=== PATIENT | female | born 1950 | race Caucasian/White ===

== ENCOUNTER 2017-04-17 16:16 | Inpatient (IN) ==
[2017-04-17] MEDS ORDERED: Vancomycin 1,750 MG in D5% in Water 250 ML IVPB ONE (16:45)
--- NOTE | 2017-04-17 16:54 | Emergency Department Note ---
Disposition Clinical Impression: CHF (congestive heart failure) Qualifiers: Congestive heart failure type: unspecified congestive heart failure type Congestive heart failure chronicity: unspecified congestive heart failure chronicity Qualified Code(s): I50.9 - Heart failure, unspecified Cellulitis Qualifiers: Site of cellulitis: extremity Site of cellulitis of extremity: lower extremity Laterality: left Qualified Code(s): L03.116 - Cellulitis of left lower limb Chest pain Qualifiers: Chest pain type: unspecified Qualified Code(s): R07.9 - Chest pain, unspecified Abdominal pain Qualifiers: Abdominal location: generalized Qualified Code(s): R10.84 - Generalized abdominal pain Disposition: Admitted As Inpatient Condition: Good Time of Disposition: 19:32 General Adult HPI - General Chief complaint: ED Abdominal Pain Stated complaint: abd pain, leg swelling Time Seen by Provider: 04/17/17 16:27 Source: patient, family Limitations: no limitations Nursing Notes Reviewed: Yes Vital Signs Reviewed: Yes - History of Present Illness HPI Narrative: 66-year-old female presenting to the emergency department with multiple chief complaints. Her first chief complaint is left lower extremity cellulitis. Approximately 4 weeks ago she fell causing an abrasion to her leg. She states since then she has had increased swelling and pain to that area. She is also had redness to the area. Now there is an open check discharging puslike fluid. She also has the beginnings of an ulcer located on the posterior tibial portion of the leg. She was placed on antibiotics outpatient which did not resolve the issues. Her symptoms have progressively been getting worse. She is extremely tender to the touch on the anterior and posterior portion of the tibia. She has a chief complaint of abdominal pain. She states after her fall 4 weeks ago she has had progressive right sided flank and rib pain. She states after she fell she went to urgent care and they x-rayed her right ribs which are within normal limits. She states since then she has been having increased pain on her right side. She denies any rash or abrasion. She states she has the pain mostly when she takes deep breaths. She also complains of increased oxygen requirement. She normally is on 2 L oxygen at night at home but now she is needing oxygen throughout the day. This is happened progressively in the past 4 weeks since she had her fall. She denies being on any hormonal therapy or having any previous DVTs or PEs in the past. She is on clopidogrel this time. She does live a sedentary lifestyle. Denies any recent long trips. In the room the patient is resting comfortably in the bed with increased respirations. Otherwise is within normal limits and stable. Patient denies urinary symptoms. Pain Scale: 4 - Related Data Home Medications Medication Instructions Recorded Confirmed Allopurinol [Zyloprim] 200 mg PO DAILY 08/06/15 03/07/17 Aspirin [Adult Low Dose Aspirin EC] 81 mg PO DAILY 08/06/15 03/07/17 Atorvastatin [Lipitor] 40 mg PO HS 08/06/15 03/07/17 Carvedilol 12.5 mg PO BID 08/06/15 03/07/17 Clopidogrel [Plavix] 75 mg PO DAILY 08/06/15 03/07/17 Cyanocobalamin (Vitamin B-12) 1,000 mcg PO SOLORIO 08/06/15 03/07/17 [Vitamin B12] Furosemide [Lasix] 40 mg PO DAILY 08/06/15 03/07/17 Insulin Glargine [Lantus] 5 unit SQ QAM 08/06/15 03/07/17 Isosorbide MONOnitrate (24 HR) 120 mg PO DAILY 08/06/15 03/07/17 [Imdur] Losartan [Cozaar] 25 mg PO DAILY 08/06/15 03/07/17 Multivitamin [Multi-Day Vitamins] 1 each PO DAILY 08/06/15 03/07/17 Ranolazine [Ranexa] 500 mg PO BID 08/06/15 03/07/17 Acetaminophen [Tylenol] 1,000 mg PO Q6HR PRN 02/25/16 03/07/17 Albuterol Sulfate [Proair Hfa] 2 puff IH Q4H PRN 02/25/16 03/07/17 Cholecalciferol (D-3) [Vitamin D] 1,000 unit PO DAILY 02/25/16 03/07/17 Dextrin [Easy Fiber] 155 gm PO BID 02/25/16 03/07/17 Ipratropium/Albuterol Neb [Duoneb] 3 ml IH Q6HR 02/25/16 03/07/17 Cranberry Fruit Concentrate 450 mg PO BID 03/07/17 03/07/17 [Cranberry] Fluticasone/Salmeterol [Advair 1 each IH BID 03/07/17 03/07/17 250-50 Diskus] Insulin Glargine [Lantus] 70 unit SQ QPM 03/07/17 03/07/17 Insulin Regular, Human [Novolin R] 2 - 12 unit SQ TIDWM PRN 03/07/17 03/07/17 Lactobacillus Acidophilus 1 cap PO BID 03/07/17 03/07/17 [Acidophilus] Previous Rx's Medication Instructions Recorded Sulfamethoxazole/Trimeth SS 1 each PO BID #14 tablet 03/31/17 [Bactrim SS] HYDROcodone/Acet 5/325 mg [[place] 1 tab PO Q6H PRN #10 tab 04/11/17 5-325 mg] Allergies Allergy/AdvReac Type Severity Reaction Status Date / Time ramipril [From Altace] Allergy Intermediate Hives Verified 04/17/17 16:22 tetanus immune globulin Allergy Intermediate See Verified 04/17/17 16:22 Comments adhesive Allergy Mild See Verified 04/17/17 16:22 Comments All systems ED: reviewed and negative except as stated. Cardiovascular: Reports: chest pain (pleuritic), dyspnea on exertion Respiratory: Reports: dyspnea Gastrointestinal: Reports: abdominal pain Past Medical History - Past Medical History Attestation: Yes The following information was validated with the patient. Source: patient Medical history: Reports: CHF, COPD, diabetes, hypertension, peripheral artery disease, renal disease Surgical history: Reports: appendectomy, breast surgery, cholecystectomy, coronary bypass (CABG), pacemaker/AICD, thyroidectomy Psychiatric history: Reports: anxiety [employer] history: Reports: bilateral tubal ligation - Social History Smoking Status: Former smoker Smokeless Tobacco Status: No Alcohol use: Reports: none Drug use: Reports: none Physical Exam - General Limitations: no limitations General appearance: alert, in no apparent distress - Head Head exam: atraumatic, normocephalic, normal inspection - Eye Eye exam: Present: normal appearance - Neck Neck exam: Present: normal inspection, full ROM - Chest Chest inspection: Present: normal inspection, symmetric chest wall rise. Absent : tenderness, rash - Cardiovascular Cardiovascular exam: Present: regular rate, normal rhythm, normal heart sounds - Abdominal Exam Abdominal exam: Present: soft, tenderness (over the right flank), normal bowel sounds. Absent: distention, guarding, rebound, rigidity - Extremities Exam Extremities exam: Present: full ROM - Expanded Lower Extremity Exam Knee exam: Present: normal inspection, full ROM Lower leg exam: Present: other (non healing ulcer on the posterior portion of the tibia, redness and warmth with purulent drainage on the anterior tibia, tenderness to palpation, increased swelling) Neurovascular/Tendon exam: Present: normal capillary refill. Absent: pulse deficit, motor deficit, sensory deficit - Neurological Exam Neurological exam: Present: alert, oriented X3 - Psychiatric Psychiatric exam: Present: normal affect - Skin Skin exam: Present: warm Course Course Narrative: 66-year-old female presenting to the emergency department with multiple chief complaints. The first chief complaint is left lower extremity cellulitis. Due to failed outpatient therapy we will obtain basic lab work and start her on IV vancomycin. Second chief complaint is right-sided abdominal pain. This pain along with the increased demand oxygen leads us to get a d-dimer. If this is elevated we will need to perform a V/Q scan on her due to her creatinine levels. We will also obtain a CMP, lipase, CT of the abdomen and pelvis without contrast to rule out any trauma from the fall or other intra-abdominal pathologies. Patient is currently stable in the room and stable vital signs. - Reevaluation(s) Reevaluation #1: Patient was brought down to the V/Q scanner but was unable to lie flat. Due to her creatinine levels cannot perform a CTA. We will wait for d-dimer result reassess as needed. Time: 17:45 Reevaluation #2: Chest x-ray read as chronic congestive heart failure. Although the patient cannot obtain the VQ scan we provided with her with Lasix. We believe the increase fluid due to congestive heart failure could be the reason behind her increased oxygen needs at this time. Time: 18:04 Reevaluation #3: Spoke with the patient about her test results. She has agreed to be admitted for congestive heart failure and inpatient treatment for her cellulitis. She is comfortably sitting on the bed eating. Vital signs are stable at this time. Time: 19:16 Additional Reevaluation(s): Dr. Rachel accepts the patient. CMP, lipase, d-dimer are still pending due to difficult blood retrieval from this patient. She is stable in the room at this time with blood pressure and systolic 160s and normal respirations. Vital Signs Temperature 97.7 F 07/30/17 16:19 Pulse Rate 68 04/17/17 16:19 Respiratory Rate 18 04/17/17 16:19 Blood Pressure 157/68 04/17/17 16:19 O2 Sat by Pulse Oximetry 98 04/17/17 16:19 Temperature 97.7 F 04/17/17 16:19 Pulse Rate 79 04/17/17 20:53 Respiratory Rate 20 04/17/17 20:53 Blood Pressure 175/75 04/17/17 20:53 O2 Sat by Pulse Oximetry 98 04/17/17 20:53 Oxygen Delivery Oxygen Delivery Nasal Cannula Medical Decision Making - Medical Records Medical records reviewed: Yes I reviewed the patient's medical records. - Lab Data Lab results reviewed: Yes I reviewed the patient's lab results. Result diagrams: 04/17/17 18:21 04/17/17 18:21 Lab Results 04/17/17 04/17/17 04/17/17 Range/Units 18:21 18:21 18:21 WBC 5.7 (4.3-11.1) K/mcL RBC 2.87 L (3.82-4.97) M/mcL Hgb 9.3 L (11.5-15.4) g/dL Hct 29.0 L (35.3-44.9) % MCV 101.0 H (83.0-100.0) fL MCH 32.4 (28.0-33.3) pg MCHC 32.1 (31.6-35.5) g/dL RDW 14.2 (11.5-14.5) % Plt Count 166 (140-400) K/mcL MPV 9.8 (9.4-12.4) fL Immature Gran % 0.4 (0-4) % Seg Neutrophils % 79.2 % Lymphocytes % 11.5 % Monocytes % 6.0 % Eosinophils % 2.5 % Basophils % 0.4 % Neutrophils # 4.5 (1.6-8.9) K/mcL Lymphocytes # 0.7 (0.6-4.6) K/mcL Monocytes # 0.3 (0.0-1.3) K/mcL Eosinophils # 0.1 (0.0-0.6) K/mcL Basophils # 0.0 (0.0-0.2) K/mcL Sodium 139 (136-145) mEq/L Potassium 4.6 H (3.5-4.5) mEq/L Chloride 102 (98-109) mEq/L Carbon Dioxide 26 (19-29) mEq/L BUN 27 H (7-20) mg/dL Creatinine 1.25 H (0.57-1.11) mg/dL Est GFR ( Amer) 52 L (> 60) Est GFR (Non-Af Amer) 43 L (> 60) BUN/Creatinine Ratio 22 (6-26) Glucose 239 H (70-99) mg/dL Calculated Osmolality 301 H (280-300) Calcium 9.5 (8.6-10.8) mg/dL Total Bilirubin 0.8 (0.2-1.2) mg/dL AST 31 (5-34) Units/L ALT 17 (0-55) Units/L Alkaline Phosphatase 111 (38-126) Units/L B-Natriuretic Peptide 523 H (0-100) pg/mL Serum Total Protein 6.8 (6.0-8.3) g/dL Albumin 3.5 (3.5-5.0) g/dL Globulin 3.3 (2.4-3.5) g/dL Albumin/Globulin Ratio 1.1 (1.1-2.2) Lipase 72 (8-78) Units/L - Radiology Data Radiology results reviewed: Yes I reviewed the patient's radiology results. Attestation Statement - Attestation Attestation: Patient was seen with resident physician. I reviewed the history, physical, assessment and plan, and agree with the findings. I also personally evaluated this patient and had [id number] time with this patient. 7 Female presents to the emergency department with a variety of complaints. She said they all started after a fall which is mechanical in nature she injured her leg on the left side. She was seen by urgent care and the result of that was she continues to have what appear to be nonhealing ulcers that are now oozing. She also has increased swelling of that lower extremity is become more painful. Patient also complains of right-sided flank pain as well as increasing shortness of breath. 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 Additionally she says the flank pain has gotten worse not better. She said she had x-rays done which did not reveal rib fractures but no other additional studies were completed. She is here today for her variety of complaints. On examination vital signs patient is on O2 with a decent pulse ox but a poor waveform. Blood pressure is hypertensive. Heart rate is regular. ENT is unremarkable. Lungs patient has increased work of breathing but no obvious wheezing heard or crackles. Chest wall is nontender to palpation. Abdomen is soft there is tenderness in the right flank and the right upper quadrant. There is also some tenderness in the suprapubic area. Extremities patient has warm left lower extremity with nonhealing ulcers that are oozing. This is true both anteriorly and posteriorly. There is not any bright red skin , but there is tenderness. Neurologically the patient is intact. ED course we will do workup for chest pain to include a PE evaluation. We will also check a CT scan of the abdomen to make sure there is no organ damage from her fall. We will start her on IV antibiotics for her leg wound which is not healing with outpatient management. Will admit patient to the hospitalist service for IV antibiotic therapy and pain management as well as respiratory management. Patient also required IV central line placement this was placed into the left groin, because she was unable to lie flat to do an internal jugular line placement. She tolerated the procedure well I was present for the entire procedure. Patient remains hemodynamically stable throughout her stay in the emergency department. I agree with the resident physician assessment and plan.
[2017-04-17] MEDS ORDERED: Vancomycin 1,750 MG in D5% in Water 500 ML IVPB ONE (17:15)
[2017-04-17] MEDS ORDERED: Ipratropium/Albuterol Neb 3 ML IH ONE (17:26)
[2017-04-17] MEDS ORDERED: Furosemide 20 MG/2 ML VIAL IVP ONE (17:57)
[2017-04-17 18:32] LABS: Basophils % 0.4 %; Eosinophils # 0.1 K/mcL (0.0-0.6); Eosinophils % 2.5 %; Hemoglobin 9.3 g/dL (11.5-15.4); Immature Granulocytes % 0.4 % (0-4); Lymphocytes # 0.7 K/mcL (0.6-4.6); Lymphocytes % 11.5 %; Mean Corpuscular HGB Conc 32.1 g/dL (31.6-35.5); Mean Corpuscular Hemoglobin 32.4 pg (28.0-33.3); Mean Platelet Volume 9.8 fL (9.4-12.4); Monocytes # 0.3 K/mcL (0.0-1.3); Neutrophils # 4.5 K/mcL (1.6-8.9); Platelet Count 166 K/mcL (140-400); Red Blood Count 2.87 M/mcL (3.82-4.97); Red Cell Distribution Width 14.2 % (11.5-14.5); Segmented Neutrophils % 79.2 %
[2017-04-17 20:07] LABS: Albumin 3.5 g/dL (3.5-5.0); Albumin/Globulin Ratio 1.1 (1.1-2.2); Bilirubin,Total 0.8 mg/dL (0.2-1.2); Calcium 9.5 mg/dL (8.6-10.8); Globulin 3.3 g/dL (2.4-3.5); Total Protein 6.8 g/dL (6.0-8.3)
[2017-04-17 20:08] LABS: Potassium 4.6 mEq/L (3.5-4.5)
--- NOTE | 2017-04-17 20:23 | Internal Med History&Physical ---
<JustinedmgeronimoCesar walker - Last Filed: 04/17/17 22:48> Date of Encounter: 04/17/17 Time of Encounter: 19:30 Assessment and Plan (1) Acute exacerbation of CHF (congestive heart failure) Current visit: Yes Status: Acute Patient presents with history of COPD and CHF and is currently experiencing an acute exacerbation of CHF based on her symptoms of fluid overload, shortness of breath with and without exertion, orthopnea, and edema of LEs. Patient currently takes 40 mg of Lasix PO daily. IVP Lasix 20 mg administered in the ED and will be followed by IVP 40 mg at 23:00 due to severe dyspnea. Order for Orellana catheter insertion placed. Patient to be placed on supplemental O2 with titration if SpO2 < 92% and continuous SpO2 monitoring. DuoNebs ordered Q4 PRN. Fluid restriction of 1.5L daily. Will monitor I&O and daily weight. Patient to be placed as falls precautions/up with assist/bed rest with bathroom privileges due to SOB and pain in LLE. Qualifiers: Congestive heart failure type: unspecified congestive heart failure type Qualified Code(s): I50.9 - Heart failure, unspecified (2) Cellulitis Current visit: Yes Status: Acute Patient presents with wound of the LLE located on the rueda which she states occurred when she was attempting to use a riding chemist enzymes four weeks ago. Upon examination, the wound is erythematous, edematous, and painful to palpation and currently is producing exudate. Wound culture ordered, blood culture ordered, and wound care consult ordered for wound on left rueda as well as left back calf. IV vancomycin started in the ED and will be continued with pharmacy dosing. Qualifiers: Site of cellulitis: extremity Site of cellulitis of extremity: lower extremity Laterality: left Qualified Code(s): L03.116 - Cellulitis of left lower limb (3) Abdominal pain Current visit: Yes Status: Acute Patient presents with acute abdominal pain which she reports is due to a fall that she sustained four weeks ago. She reports that the pain is located in her right LQ side and right flank. CT of the abdomen/pelvis today show no evidence of acute inflammatory process in the abdomen or pelvis. Diverticulosis is present without evidence of diverticulitis. Will continue to monitor patient for signs of continued abdominal pain and administer stair-step pain medication as needed. Qualifiers: Abdominal location: right lower quadrant Qualified Code(s): R10.31 - Right lower quadrant pain (4) HTN (hypertension) Current visit: Yes Status: Chronic Patient presents with history of chronic hypertension which she reports is well- controlled. BP upon admission to the ED was 157/68. Will monitor patient and vital signs and continue patient's Cozaar and carvedilol. Qualifiers: Hypertension type: essential hypertension Qualified Code(s): I10 - Essential (primary) hypertension (5) HLD (hyperlipidemia) Current visit: Yes Status: Chronic Patient presents with history of chronic hyperlipidemia. Lipid panel ordered. Will continue patient's Lipitor. Qualifiers: Hyperlipidemia type: pure hypercholesterolemia Qualified Code(s): E78.00 - Pure hypercholesterolemia, unspecified; E78.0 - Pure hypercholesterolemia (6) Diabetes Current visit: Yes Status: Chronic Patient presents with chronic diabetes with insulin dependency. Blood glucose monitoring ACHS. Will continue patient's insulin therapy with low-dose correction sliding scale and hypoglycemia protocol. Diabetes education consult ordered due to patient's current neuropathy and diabetic ulcer of LLE on back of calf. A1c ordered. 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 Will use IVP Lasix judiciously and monitor patient's I&O and daily weight based on her CKD as well as her acute exacerbation of CHF. Qualifiers: Chronic kidney disease stage: stage 3 (moderate) Qualified Code(s): N18.3 - Chronic kidney disease, stage 3 (moderate) (8) PAD (peripheral artery disease) Current visit: Yes Status: Chronic Patient presents with history of PAD. Patient currently has bilateral pedal edema related to her acute exacerbation of CHF as well as her diagnosis of cellulitis of the LLE. Bilateral venous Doppler ordered for the LEs to rule out DVTs. Patient placed as falls precautions/up with assist/bed rest with bathroom privileges due to extreme SOB and pain in LLE. (9) DVT prophylaxis Current visit: Yes Status: Acute Patient to be placed on DVT prophylaxis due to current admission protocol and bed rest status. Heparin 5,000 units SQ Q8 ordered. Internal Medicine - H&P: HPI Chief complaint: Shortness of breath, cellulitis of LLE Admitted From: Emergency Dept Plans for Post Hospital Care: Home History of present illness: Mrs. Smith is a 66 year old female who presents to the ED with several chief complaints. First is her complaint of shortness of breath and orthopnea. Second is her complaint of cellulitis and pain in the LLE. Her third chief complaint is abdominal pain that is located in the right side and right flank area. She states that all three problems have become worse in the four weeks since her fall. Upon examination, Mrs. Smith is dyspneic without exertion and orthopneic when she attempts to lay flat. She states that she has a bed at home that allows her to sleep sitting up but that her symptoms are worse than usual. Patient also states that she hurt her LLE in a fall four weeks ago while attempting to get on a riding chemist enzymes. Currently, the wound to her left rueda is producing exudate and will require culturing as the area is erythematous, edematous, and painful to the touch. Patient was placed on antibiotics as an outpatient and reports that they are not working for the leg. Patient also reports abdominal pain upon palpation during examination that is located on the right LQ side and right flank area. CT scan today of the abdomen/pelvis shows no evidence of acute inflammatory process in the abdomen or pelvis, but there is diverticulosis without evidence of diverticulitis. Mrs. Smith has a medical history that includes CHF, COPD, diabetes with insulin dependency, HTN, HLD, PAD , and renal disease. Patient is a former smoker reporting she smoked one pack per day and quit in 2006. Upon admission to the ED, patient was a difficult stick for blood retrieval subtests for CMP, lipase, and d-dimer are still pending at this time due to impending placement of central line. Patient does not currently meet sepsis criteria based on her WBC of 5.7, HR of 68, RR of 18- 20, and temperature of 97.7F. Patient is at moderate risk for further morbidity based on her current acute exacerbation of CHF and unresolved cellulitis and she will be placed as inpatient status with continuation of IV antibiotics administered in the ED and supplemental O2 with SpO2 monitoring. DuoNebs Q4 PRN ordered as well. Blood culture and wound culture ordered. Stair-step pain medication to be administered as needed. Patient to be monitored closely for signs of increasing infection and/or respiratory distress. Time spent with patient > 40 minutes. Past Med Surg Social Fam HX - Past Medical History Source: patient Medical history: CHF, COPD, diabetes, hyperlipidemia, hypertension, peripheral artery disease, renal disease Psychiatric history: anxiety - Past Surgical History Surgical History: appendectomy, breast surgery, cholecystectomy, coronary bypass (CABG), pacemaker/AICD, thyroidectomy - Social History Smoking Status: Former smoker Packs per day: 1 PPD - reports quitting in 2006 Smokeless Tobacco Status: No Alcohol use: none Drug use: none Current living situation: Home, With Family Activity Level: Uses cane/walker Recent Out of Country Travel Within the Last 8 Weeks: No Exposure or Possible Exposure to Illness During Travel: No - Family History Father Race: Family Member Ethnicity: Non- Living Status: Age at : 58 Cause of : Colon cancer Hx Family Cancer: Yes (Colon) Mother Race: Family Member Ethnicity: Non- Living Status: Age at : 76 Cause of : DVT Hx Family Cardiac Disorders: Yes (DVTs) Hx Family Cancer: Yes (Breast) Hx Family Endocrine Disorder: Yes (DM) Brother Race: Family Member Ethnicity: Non- Living Status: Age at : 63 Cause of : MN Hx Family Cardiac Disorders: Yes ([place], HD) Sister Race: Family Member Ethnicity: Non- Living Status: Still Living Hx Family Cardiac Disorders: Yes (HD/Stent placement) Hx Family Musculoskeletal Disorders: Yes (Arthritis) Internal Medicine - H&P: Meds Allopurinol [Zyloprim] 200 mg PO DAILY 08/06/15 [History] Aspirin [Adult Low Dose Aspirin EC] 81 mg PO DAILY 08/06/15 [History] Atorvastatin [Lipitor] 40 mg PO HS 08/06/15 [History] Carvedilol 12.5 mg PO BID 08/06/15 [History] Clopidogrel [Plavix] 75 mg PO DAILY 08/06/15 [History] Cyanocobalamin (Vitamin B-12) [Vitamin B12] 1,000 mcg PO SOLORIO 08/06/15 [History] Furosemide [Lasix] 40 mg PO DAILY 08/06/15 [History] Insulin Glargine [Lantus] 5 unit SQ QAM 08/06/15 [History] Isosorbide MONOnitrate (24 HR) [Imdur] 120 mg PO DAILY 08/06/15 [History] Losartan [Cozaar] 25 mg PO DAILY 08/06/15 [History] Multivitamin [Multi-Day Vitamins] 1 each PO DAILY 08/06/15 [History] Ranolazine [Ranexa] 500 mg PO BID 08/06/15 [History] Acetaminophen [Tylenol] 1,000 mg PO Q6HR PRN 02/25/16 [History] Albuterol Sulfate [Proair Hfa] 2 puff IH Q4H PRN 02/25/16 [History] Cholecalciferol (D-3) [Vitamin D] 1,000 unit PO DAILY 02/25/16 [History] Dextrin [Easy Fiber] 155 gm PO BID 02/25/16 [History] Ipratropium/Albuterol Neb [Duoneb] 3 ml IH Q6HR 02/25/16 [History] Cranberry Fruit Concentrate [Cranberry] 450 mg PO BID 03/07/17 [History] Fluticasone/Salmeterol [Advair 250-50 Diskus] 1 each IH BID 03/07/17 [History] Insulin Glargine [Lantus] 70 unit SQ QPM 03/07/17 [History] Insulin Regular, Human [Novolin R] 2 - 12 unit SQ TIDWM PRN 03/07/17 [History] Lactobacillus Acidophilus [Acidophilus] 1 cap PO BID 03/07/17 [History] HYDROcodone/Acet 5/325 mg [[place] 5-325 mg] 1 tab PO Q6H PRN #10 tab 04/11/17 [Rx ] Allergies ramipril [From Altace] Allergy (Intermediate, Verified 04/17/17 16:22) Hives tetanus immune globulin Allergy (Intermediate, Verified 04/17/17 16:22) See Comments Swelling adhesive Allergy (Mild, Verified 04/17/17 16:22) See Comments redness All Systems PM: A 10-system review of systems was performed and is negative for pertinent findings except as documented above in the HPI. - Constitutional Constitutional: no chills, no fever(s), no night sweats - EENT Eyes: no change in vision, no discharge, no pain, no photophobia Ears: no ear discharge, no ear pain, no tinnitus Nose, mouth and throat: no dysphagia, no nasal discharge, no neck pain, no sore throat - Breasts Breasts: as per HPI - Cardiovascular Cardiovascular ROS IM: as per HPI, dyspnea, dyspnea on exertion, edema, orthopnea - Respiratory Respiratory: as per HPI, dyspnea, dyspnea on exertion - Gastrointestinal Gastrointestinal: as per HPI, abdominal pain - Genitourinary Genitourinary: no change in urinary stream, no dysuria, no flank pain, no hematuria Menstruation: as per HPI - Musculoskeletal Musculoskeletal ROS IM: numbness (LEs bilaterally due to diabetic neuropathy), tingling - Integumentary Integumentary IM: as per HPI, erythema (LLE - wound on left rueda sustained in fall four weeks ago), non-healing lesions (LLE - wound on back of left calf that appears to be a diabetic ulcer (semi-healed)), no rash, no unusual bruising - Neurological Neurological ROS: as per HPI, numbness, tingling, no confusion, no convulsions, no focal weakness, no tremor(s) - Psychiatric Psychiatric: as per HPI - Endocrine Endocrine IM: as per HPI - Hematologic/Lymphatic Hematologic/Lymphatic: no easy bruising - Allergic/Immunologic Allergic/Immunologic: as per HPI - Constitutional Vitals: Temp Pulse Resp BP Pulse Ox 97.7 F 68 20 167/84 97 04/17/17 16:19 04/17/17 16:19 04/17/17 19:59 04/17/17 19:59 04/17/17 17:45 General appearance: Present: cooperative, mild distress, A&O X 3, morbidly obese , pleasant, answers questions appropriately - Head Head exam: Present: atraumatic, normocephalic - Eye Eye exam: Present: PERRL, conjuntiva pink, sclera anicteric Pupils: Present: PERRL - ENT ENT exam: Present: normal exam, normal external ear exam - Neck Neck exam general surgery: Present: normal inspection, supple, trachea midline - Respiratory Respiratory exam: Present: accessory muscle use, decreased breath sounds, respiratory distress, wheezes - Cardiovascular Cardiovascular exam: Present: RRR, +S1, +S2. Absent: diastolic murmur, gallop, rubs, systolic murmur - GI/Abdominal GI/Abdominal exam: Present: guarding (Right UQ side/right flank), soft, tenderness - Rectal Rectal exam: Present: deferred - Additional comments: exam deferred. - Extremities Exam Extremities exam: Present: pedal edema, tenderness (LLE), warm, radial pulses palpable and symetrical - Back Exam Back exam: Present: normal inspection - Neurological Exam Neurological exam: Present: CN II-XII intact, oriented X3, no focal deficits. Absent: pronater drift, facial droop, speech deficit - Psychiatric Psychiatric exam: Present: normal affect, normal mood - Skin Skin exam: Present: erythema (LLE - rueda) Internal Med - H&P Results - Labs CBC & Chem 7: 04/17/17 18:21 04/17/17 18:21 Labs: Short CBC 04/17/17 Range/Units 18:21 WBC 5.7 (4.3-11.1) K/mcL Hgb 9.3 L (11.5-15.4) g/dL Hct 29.0 L (35.3-44.9) % Plt Count 166 (140-400) K/mcL Neutrophils # 4.5 (1.6-8.9) K/mcL BMP 04/17/17 18:21 Sodium 139 Potassium 4.6 H Chloride 102 Carbon Dioxide 26 BUN 27 H Creatinine 1.25 H Glucose 239 H Calcium 9.5 Liver Function 04/17/17 Range/Units 18:21 Total Bilirubin 0.8 (0.2-1.2) mg/dL AST 31 (5-34) Units/L ALT 17 (0-55) Units/L Alkaline Phosphatase 111 (38-126) Units/L Albumin 3.5 (3.5-5.0) g/dL - EKG Data EKG shows normal: sinus rhythm - EKG Data When compared to previous EKG: there is no significant change EKG comments: 04/17/17 21:15 EKG dated 03/12/16 shows sinus rhythm. EKG dated 04/17/17 shows sinus rhythm with nonspecific T-wave abnormality. - Impressions ITS Impressions Abdomen/Pelvis CT 04/17/17 16:45 IMPRESSION: No evidence of acute inflammatory process in the abdomen or pelvis. Diverticulosis without evidence of diverticulitis. D/ / 04/17/2017 18:34:47 Kateryna Fuller MD / Uzma Bradley Interpreting Provider: Kateryna Fuller MD Chest X-Ray 04/17/17 16:45 IMPRESSION: 1. Findings suggest congestive heart failure. 2. Hypoaeration again noted at the lung bases. D/ / 04/17/2017 17:25:52 Roni Pretty MD / Uzma Bradley Interpreting Provider: Roni Pretty MD Tibia/Fibula X-Ray 04/17/17 16:45 IMPRESSION: 1. No acute osseous abnormality of the left tibia or fibula. 2. Diffuse soft tissue swelling and subcutaneous edema. D/ / Truong Burton MD / Truong Burton MD Interpreting Provider: Truong Burton MD - Diagnostic Studies Chest x-ray Additional comments: Impressions Chest X-Ray 04/17/17 16:45 IMPRESSION: 1. Findings suggest congestive heart failure. 2. Hypoaeration again noted at the lung bases. D/ / 04/17/2017 17:25:52 Roni Pretty MD / Uzma Bradley Interpreting Provider: Roni Pretty MD CT scan - abdomen Additional comments: Impressions Abdomen/Pelvis CT 04/17/17 16:45 IMPRESSION: No evidence of acute inflammatory process in the abdomen or pelvis. Diverticulosis without evidence of diverticulitis. D/ / 04/17/2017 18:34:47 Kateryna Fuller MD / Uzma Bradley Interpreting Provider: Kateryna Fuller MD Other Images Additional comments: Impressions Tibia/Fibula X-Ray 04/17/17 16:45 IMPRESSION: 1. No acute osseous abnormality of the left tibia or fibula. 2. Diffuse soft tissue swelling and subcutaneous edema. D/ / Truong Burton MD / Truong Burton MD Interpreting Provider: Truong Burton MD <Perez Rachel - Last Filed: 04/17/17 23:03> Date of Encounter: 04/17/17 Internal Medicine - H&P: HPI History of present illness: Ms. Smith is a 66 year old female All Systems PM: A 10-system review of systems was performed and is negative for pertinent findings except as documented above in the HPI. - Constitutional Vitals: Temp Pulse Resp BP Pulse Ox 97.7 F 77 20 187/73 98 04/17/17 21:55 04/17/17 21:55 04/17/17 21:55 04/17/17 21:55 04/17/17 21:55 Internal Med - H&P Results - Labs CBC & Chem 7: 04/17/17 18:21 04/17/17 18:21 Labs: Cardiac Enzymes 04/17/17 Range/Units 21:15 Troponin I 0.03 (0-0.03) ng/mL - Attending Attestation I examined this patient and my medical decision-making was reviewed with the RODRIGO. I agree with the documented findings, disposition and treatment plan as described except to the extent set forth below. 66 yo female who presents for : 1) Acute on chronic respiratory failure : She is under ther care of Dr Chaudhry of cardiology and is on lasix 40mg daily. In the last 6 weeks to a month, she had noted progressive increased work of breathing that is not improving - worse with movement. She uses chronic 2 L NC intermittently during day and Bipap in the evening. She has now required more oxygen than her baseline. Associated with weight gain, feeling bloated/swollen in the lower abdomen and progressive LE swelling. 2) Cellulitis LLE: Was evaluated in the outpatient and completed 2 weeks course of bactrim to no improvement. Discharge now present, erythema still present and possible worsening. In the ED, CXR and exam with evidence of fluid overload. Due to difficult IV access, ED placed a femoral line. ED sent d-dimer which was elevated in setting CKD, acute cellulitis and was unable to complete V/Q scan in the ED. ROS 14 point review of systems reviewed as best as possible given presentation. Pertinent positive or negative as per HPI or otherwise reviewed as negative General - AAO x 3 Psych - Appropriate affect/speech. No agitation Eyes - NICO. Eye lids intact. No scleral icterus ENT - Oral mucosa pink, dentition intact. External ear clear/dry/intact. No thyromegaly Lymphatics - No cervical/inguinal lympadenopathy Neuro - No gross peripheral or central neuro deficits with intact CN 2-12 exam Heart - Sinus. RRR. S1 and S2 present. No added HS/murmurs appreciated. No elevated JVD appreciated. Lung - Adequate air entry b/l, Bibasal crackes. No wheezes appreciated GI - Soft, non-tender. No hepatosplenomegaly/ascities. BS+ - No CVA/suprapubic tenderness or palpable bladder distension Skin - RLE rueda cellulitis with yellow discharge, surround swelling and edema + 1. MSK - Joints with normal ROM. No joint swellings A/P Acute on chronic respiratory failure Acute congestive diastolic CHF - Lasix 40mg IV tonight, tomorrow a.m and reassess - accurate I/Os - consult card - Given alternate explanation for respiratory insufficieny with CXR and clinical hx of volume overload, acute on chronic CHF causing respiratory insufficiency, and lack of tachycardia, we did not opt to empirically anticoagulate her. D-dimer (elevated) and V/Q ordered in the ED could not be completed but d-dimer could be due to acute infection/cellulitis. Will order routine b/l LE doppler to r/o DVTs and further management pending response to diuretics. LLE cellulitis - IV vanco, monitor level, pharm to assist - wound care
[2017-04-17] MEDS ORDERED: Naloxone 0.4 MG/ML INJ IVP PRN (20:53)
[2017-04-17] MEDS ORDERED: Acetaminophen 325 MG TABLET PO PRN (20:53)
[2017-04-17] MEDS ORDERED: *HR* HYDROcodone/Acet 5/325 mg TABLET PO PRN (20:53)
[2017-04-17] MEDS ORDERED: Ipratropium/Albuterol Neb 3 ML IH PRN (20:59)
--- NOTE | 2017-04-17 21:16 | Emergency Department Note ---
Disposition Clinical Impression: CHF (congestive heart failure) Qualifiers: Congestive heart failure type: unspecified congestive heart failure type Congestive heart failure chronicity: unspecified congestive heart failure chronicity Qualified Code(s): I50.9 - Heart failure, unspecified Cellulitis Qualifiers: Site of cellulitis: extremity Site of cellulitis of extremity: lower extremity Laterality: left Qualified Code(s): L03.116 - Cellulitis of left lower limb Chest pain Qualifiers: Chest pain type: unspecified Qualified Code(s): R07.9 - Chest pain, unspecified Abdominal pain Qualifiers: Abdominal location: generalized Qualified Code(s): R10.84 - Generalized abdominal pain Disposition: Admitted As Inpatient Condition: Good General Adult HPI - General Chief complaint: ED Abdominal Pain Stated complaint: abd pain, leg swelling Time Seen by Provider: 04/17/17 16:27 Source: patient, family Limitations: no limitations - History of Present Illness Pain Scale: 4 - Related Data Home Medications Medication Instructions Recorded Confirmed Allopurinol [Zyloprim] 200 mg PO DAILY 08/06/15 03/07/17 Aspirin [Adult Low Dose Aspirin EC] 81 mg PO DAILY 08/06/15 03/07/17 Atorvastatin [Lipitor] 40 mg PO HS 08/06/15 03/07/17 Carvedilol 12.5 mg PO BID 08/06/15 03/07/17 Clopidogrel [Plavix] 75 mg PO DAILY 08/06/15 03/07/17 Cyanocobalamin (Vitamin B-12) 1,000 mcg PO SOLORIO 08/06/15 03/07/17 [Vitamin B12] Furosemide [Lasix] 40 mg PO DAILY 08/06/15 03/07/17 Insulin Glargine [Lantus] 5 unit SQ QAM 08/06/15 03/07/17 Isosorbide MONOnitrate (24 HR) 120 mg PO DAILY 08/06/15 03/07/17 [Imdur] Losartan [Cozaar] 25 mg PO DAILY 08/06/15 03/07/17 Multivitamin [Multi-Day Vitamins] 1 each PO DAILY 08/06/15 03/07/17 Ranolazine [Ranexa] 500 mg PO BID 08/06/15 03/07/17 Acetaminophen [Tylenol] 1,000 mg PO Q6HR PRN 02/25/16 03/07/17 Albuterol Sulfate [Proair Hfa] 2 puff IH Q4H PRN 02/25/16 03/07/17 Cholecalciferol (D-3) [Vitamin D] 1,000 unit PO DAILY 02/25/16 03/07/17 Dextrin [Easy Fiber] 155 gm PO BID 02/25/16 03/07/17 Ipratropium/Albuterol Neb [Duoneb] 3 ml IH Q6HR 02/25/16 03/07/17 Cranberry Fruit Concentrate 450 mg PO BID 03/07/17 03/07/17 [Cranberry] Fluticasone/Salmeterol [Advair 1 each IH BID 03/07/17 03/07/17 250-50 Diskus] Insulin Glargine [Lantus] 70 unit SQ QPM 03/07/17 03/07/17 Insulin Regular, Human [Novolin R] 2 - 12 unit SQ TIDWM PRN 03/07/17 03/07/17 Lactobacillus Acidophilus 1 cap PO BID 03/07/17 03/07/17 [Acidophilus] Previous Rx's Medication Instructions Recorded Sulfamethoxazole/Trimeth SS 1 each PO BID #14 tablet 03/31/17 [Bactrim SS] HYDROcodone/Acet 5/325 mg [[place] 1 tab PO Q6H PRN #10 tab 04/11/17 5-325 mg] Allergies Allergy/AdvReac Type Severity Reaction Status Date / Time ramipril [From Altace] Allergy Intermediate Hives Verified 04/17/17 16:22 tetanus immune globulin Allergy Intermediate See Verified 04/17/17 16:22 Comments adhesive Allergy Mild See Verified 04/17/17 16:22 Comments Cardiovascular: Reports: chest pain (pleuritic), dyspnea on exertion Respiratory: Reports: dyspnea Gastrointestinal: Reports: abdominal pain Past Medical History - Past Medical History Medical history: Reports: CHF, COPD, diabetes, hyperlipidemia, hypertension, peripheral artery disease, renal disease Surgical history: Reports: appendectomy, breast surgery, cholecystectomy, coronary bypass (CABG), pacemaker/AICD, thyroidectomy Psychiatric history: Reports: anxiety [employer] history: Reports: bilateral tubal ligation - Social History Smoking Status: Former smoker Smokeless Tobacco Status: No Alcohol use: Reports: none Drug use: Reports: none Physical Exam - General Limitations: no limitations General appearance: alert, in no apparent distress Course Course Narrative: Patient has had multiple attempts at peripheral venous access. Unable to maintain access to retrieve blood or give IV antibiotics. A left femoral central venous access was maintained. Patient tolerated procedure well. Vital Signs Temperature 97.7 F 04/17/17 16:19 Pulse Rate 68 04/17/17 16:19 Respiratory Rate 18 04/17/17 16:19 Blood Pressure 157/68 04/17/17 16:19 O2 Sat by Pulse Oximetry 98 04/17/17 16:19 Temperature 97.7 F 04/17/17 16:19 Pulse Rate 79 04/17/17 20:53 Respiratory Rate 20 04/17/17 20:53 Blood Pressure 175/75 04/17/17 20:53 O2 Sat by Pulse Oximetry 98 04/17/17 20:53 Oxygen Delivery Oxygen Delivery Nasal Cannula Procedures - Central Line Placement Left Femoral Central Line Inserted*: Yes Central Line Catheter Replacement*: Yes Central Line Insertion: emergent Consent Obtained: written consent Procedural Pause: verify patient name and date of , timeout performed per policy, allison and assess the site, assemble equipment and verify supplies, perform hand hygiene During the Procedure: clinician is wearing sterile gloves, cap, mask,& gown during insertion, sterile field and sterile technique are maintained, patient's face is covered with drape or mask and wearing a cap, everyone in room is wearing a mask Central Line Prep: Chlorhexidine scrub Prep the Procedure Site: apply chloraprep to the skin using a back and forth scrubbing motion, apply chloraprep for 30 seconds (upper body), 1-2 min ( femoral sites), allow prep to dry, drape the patient with a full body drape Local Anesthetic: lidocaine 1% Central Line Lumen Inserted: triple Post Procedure: sutured in place, good blood return, all ports aspirated, flushed, capped, sterile dressing applied, guide wire removed and visualized Patient Tolerated Procedure: well, no complications Complications: none Medical Decision Making - Lab Data Result diagrams: 04/17/17 18:21 04/17/17 18:21 Lab Results 04/17/17 04/17/17 04/17/17 Range/Units 18:21 18:21 18:21 WBC 5.7 (4.3-11.1) K/mcL RBC 2.87 L (3.82-4.97) M/mcL Hgb 9.3 L (11.5-15.4) g/dL Hct 29.0 L (35.3-44.9) % MCV 101.0 H (83.0-100.0) fL MCH 32.4 (28.0-33.3) pg MCHC 32.1 (31.6-35.5) g/dL RDW 14.2 (11.5-14.5) % Plt Count 166 (140-400) K/mcL MPV 9.8 (9.4-12.4) fL Immature Gran % 0.4 (0-4) % Seg Neutrophils % 79.2 % Lymphocytes % 11.5 % Monocytes % 6.0 % Eosinophils % 2.5 % Basophils % 0.4 % Neutrophils # 4.5 (1.6-8.9) K/mcL Lymphocytes # 0.7 (0.6-4.6) K/mcL Monocytes # 0.3 (0.0-1.3) K/mcL Eosinophils # 0.1 (0.0-0.6) K/mcL Basophils # 0.0 (0.0-0.2) K/mcL Sodium 139 (136-145) mEq/L Potassium 4.6 H (3.5-4.5) mEq/L Chloride 102 (98-109) mEq/L Carbon Dioxide 26 (19-29) mEq/L BUN 27 H (7-20) mg/dL Creatinine 1.25 H (0.57-1.11) mg/dL Est GFR ( Amer) 52 L (> 60) Est GFR (Non-Af Amer) 43 L (> 60) BUN/Creatinine Ratio 22 (6-26) Glucose 239 H (70-99) mg/dL Calculated Osmolality 301 H (280-300) Calcium 9.5 (8.6-10.8) mg/dL Total Bilirubin 0.8 (0.2-1.2) mg/dL AST 31 (5-34) Units/L ALT 17 (0-55) Units/L Alkaline Phosphatase 111 (38-126) Units/L B-Natriuretic Peptide 523 H (0-100) pg/mL Serum Total Protein 6.8 (6.0-8.3) g/dL Albumin 3.5 (3.5-5.0) g/dL Globulin 3.3 (2.4-3.5) g/dL Albumin/Globulin Ratio 1.1 (1.1-2.2) Lipase 72 (8-78) Units/L - EKG Data EKG #1 EKG attestation: Yes I reviewed and interpreted this EKG. EKG results narrative: Sinus rhythm 78 bpm. Normal axis. PA interval 165 ms, QRS 84 ms, QTC 425 ms. Poor R-wave progression. No ST segment abnormalities noted. No signs of ischemia. Attestation Statement - Attestation Attestation: Patient was seen with resident physician. I reviewed the history, physical, assessment and plan, and agree with the findings. I also personally evaluated this patient and had [id number] time with this patient. I was present for the entirety of the central line placement. Agree with the EKG findings as well.
[2017-04-17] MEDS ORDERED: Vancomycin 1,750 MG in D5% in Water 250 ML IVPB SCH (22:00)
[2017-04-17] MEDS ORDERED: *HR* Dextrose 50 % in Water (Syg) 50 ML SYRINGE IVP PRN (22:39)
[2017-04-17] MEDS ORDERED: D5% in Water 1,000 ML IVC PRN (22:39)
[2017-04-17] MEDS ORDERED: Dextrose Gel 15 GM PO PRN ×2 (22:39)
[2017-04-17] MEDS ORDERED: NON-FORMULARY MEDICATION 1 EACH EACH (Insulin Glargine [Lantus] 70 UNIT) SQ SCH (22:45)
[2017-04-17] MEDS ORDERED: Cyanocobalamin (B-12) 1,000 MCG TABLET PO SCH (22:45)
[2017-04-17] MEDS ORDERED: Furosemide 40 MG/4 ML VIAL IVP ONE (23:00)
[2017-04-17] MEDS: *HR* Heparin 5,000 UNIT/ML VIAL SQ SCH (23:38)
[2017-04-17] MEDS: Insulin DETEMIR 100 UNIT/ML X5UNITS SQ SCH (23:38)
[2017-04-18 04:25] LABS: Basophils % 0.3 %; Eosinophils # 0.1 K/mcL (0.0-0.6); Eosinophils % 2.2 %; Hematocrit 28.9 % (35.3-44.9); Hemoglobin 9.4 g/dL (11.5-15.4); Immature Granulocytes % 0.3 % (0-4); Lymphocytes # 0.9 K/mcL (0.6-4.6); Lymphocytes % 14.2 %; Mean Corpuscular HGB Conc 32.5 g/dL (31.6-35.5); Mean Corpuscular Hemoglobin 32.6 pg (28.0-33.3); Mean Corpuscular Volume 100.3 fL (83.0-100.0); Mean Platelet Volume 9.1 fL (9.4-12.4); Monocytes # 0.3 K/mcL (0.0-1.3); Monocytes % 5.2 %; Neutrophils # 4.6 K/mcL (1.6-8.9); Platelet Count 164 K/mcL (140-400); Red Blood Count 2.88 M/mcL (3.82-4.97); Red Cell Distribution Width 13.8 % (11.5-14.5); Segmented Neutrophils % 77.8 %
[2017-04-18 04:29] LABS: INR 1.2; Prothrombin Time 12.8 Seconds (9.4-12.1)
[2017-04-18 04:31] LABS: Activated Partial Thrombo Time 29.7 Seconds (26.0-36.0)
[2017-04-18 04:41] LABS: Hemoglobin A1C 8.4 %
[2017-04-18 04:43] LABS: Calcium 9.6 mg/dL (8.6-10.8); Magnesium 1.4 mg/dL (1.6-2.6)
[2017-04-18] MEDS ORDERED: Furosemide 40 MG/4 ML VIAL IVP ONE (06:00)
[2017-04-18] MEDS: Ranolazine 500 MG TAB.ER.12H PO SCH ×2 (08:52→19:57)
[2017-04-18] MEDS: Multivit/Ca/Min/Fe/FA 1 TAB TABLET PO SCH (08:52)
[2017-04-18] MEDS: Cholecalciferol (D-3) 1,000 UNIT TABLET PO SCH (08:52)
[2017-04-18] MEDS: Isosorbide MONOnitrate (24 HR) 60 MG TAB.ER.24H PO SCH (08:52)
[2017-04-18] MEDS: Lactobacillus 1 EACH CAP.SPRINK PO SCH ×2 (08:53→19:56)
[2017-04-18] MEDS: Aspirin Enteric Coated 81 MG Tablet PO SCH (08:53)
[2017-04-18] MEDS: *HR* Heparin 5,000 UNIT/ML VIAL SQ SCH ×3 (08:53→22:46)
[2017-04-18] MEDS: Insulin LISPRO 300 UNITS/3 ML VIAL SQ SCH ×4 (08:54→20:01)
[2017-04-18] MEDS: Insulin DETEMIR 100 UNIT/ML X5UNITS SQ SCH ×2 (08:59→20:01)
[2017-04-18] MEDS ORDERED: Furosemide 40 MG TABLET PO SCH (09:00)
[2017-04-18] MEDS ORDERED: INSULIN GLARGINE 5 UNIT SQ SCH (09:00)
--- NOTE | 2017-04-18 10:01 | Cardiology Consult Note ---
Date of Encounter: 04/19/17 Time of Encounter: 09:20 Assessment and Plan (1) Congestive heart disease Current Visit: Yes Status: Acute Heart failure with preserved ejection fraction. Last EF was measured 03/16/17 with stress test was 60%. Patient now has weight gain, edema, orthopnea. Improving with diuresis. Net negative 1285 mL since admission. She is currently on home dos of lasix 40mg daily. Would consider increasing during her acute exacerbation. Possibly 40mg BID. Recommend fluid restriction diet with Na restriction. Strict I's and O's Blood pressure is above goal. Losartan was increased this AM and she has just recently had her medications. Recommend increasing Coreg if Blood pressure is still above goal. Qualifiers: Congestive heart failure type: diastolic Qualified Code(s): I50.30 - Unspecified diastolic (congestive) heart failure (2) Accelerated hypertension Current Visit: Yes Status: Acute May be the etiology of her exacerbation. currently well above goal. Her Losartan dose was increased this AM . She has just received her AM medications as well. If blood pressure is still not at goal after the increase of losartan would recommend increasing her Coreg. (3) Cellulitis Current Visit: Yes Status: Acute on vancomycin management per primary team. 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 (5) Diabetes Current Visit: Yes Status: Acute IDDM managment per primary team. Qualifiers: Qualified Code(s): E11.9 - Type 2 diabetes mellitus without complications (6) Obesities, morbid Current Visit: Yes Status: Acute advise weight loss (7) Abdominal pain Current Visit: Yes Status: Acute appears to be improving. No abnormal findings on CT of the abdomen. Primary team is working up/ managing. Qualifiers: Abdominal location: left lower quadrant Qualified Code(s): R10.32 - Left lower quadrant pain (8) CKD (chronic kidney disease) Current Visit: Yes Status: Acute CKD3a Scr near baseline. continue to monitor Qualifiers: Chronic kidney disease stage: stage 3 (moderate) Qualified Code(s): N18.3 - Chronic kidney disease, stage 3 (moderate) (9) CAD (coronary artery disease) Current Visit: Yes Status: Acute Most recent LHC 03/16/16 revealed the following. Coronary Dominance: right Lesion Findings/Interventions * Left Main Coronary Artery There is a 40% stenosis in the LMCA. * Left Anterior Descending There is a 30% stenosis in the Proximal LAD. * Circumflex There is a 30% stenosis in the Mid Circumflex. * Ramus There is a 50% stenosis in the ostial Ramus. * Right Coronary Artery There is a 50% stenosis in the ostial RCA. There is a 30% stenosis in the Mid RCA. Additional Findings: Grafts * The left internal mammary graft to the LAD is atretic, nonfunctional. Currently on ASA, plavix, and Lipitor. Continue to manage diabetes and other modifiable risk factors. Qualifiers: Qualified Code(s): I25.10 - Atherosclerotic heart disease of [place] coronary artery without angina pectoris (10) History of coronary artery bypass graft Current Visit: Yes Status: Acute s/p CABG 2006. Discussion w patient/family: The assessment and plan as outlined above was discussed with the patient and/or family members who expressed understanding and agreement. All questions were answered. Thank you for involving us in the care of your patient. Please call with any questions. History of Present Illness Consult date: 04/18/17 Requesting physician: Juan David Carter Consult reason: CHF Chief complaint: dyspnea History of present illness: Ms. Smith is a 66 year old female with pmh significant for CAD S/P CABG in 2006. Her most recent LHC was 03/16/17 ( please see below for results). 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 Today the patient states that she fell about a month ago and has been noticing she has had worsening shortness of breath since that time. she states that she has gained approximately 15 pounds in the last month. She has had to raise the incline on her bed to sleep at night. she admits to orthopnea and PND. She dose admit to lower extremity swelling but states she is unsure of how much since she has chronic edema in the left leg after her total knee replacement. She states that she dose not measure her fluid intake. She also thinks she missed some doses of her medications this weekend but is not completely sure. She dose admit to some LLQ abdominal pain mercy has been ongoing since her fall. She denies any fever chills, diarrhea, melena or hematochezia. She has no further complaints or concerns at this time. [facility] 03/16/17 * Left Main Coronary Artery There is a 40% stenosis in the LMCA. * Left Anterior Descending There is a 30% stenosis in the Proximal LAD. * Circumflex There is a 30% stenosis in the Mid Circumflex. * Ramus There is a 50% stenosis in the ostial Ramus. * Right Coronary Artery There is a 50% stenosis in the ostial RCA. There is a 30% stenosis in the Mid RCA. * The left internal mammary graft to the LAD is atretic, nonfunctional. Past Med Surg Social Fam HX - Past Medical History Medical history: CHF, COPD, diabetes, hyperlipidemia, hypertension, peripheral artery disease, renal disease Psychiatric history: anxiety - Past Surgical History Surgical History: appendectomy, breast surgery, cholecystectomy, coronary bypass (CABG), pacemaker/AICD, thyroidectomy - Social History Smoking Status: Former smoker Packs per day: 1 PPD - reports quitting in 2006 Smokeless Tobacco Status: No Alcohol use: none Drug use: none - Family History Father Race: Family Member Ethnicity: Non- Living Status: Age at : 58 Cause of : Colon cancer Hx Family Cancer: Yes (Colon) Mother Race: Family Member Ethnicity: Non- Living Status: Age at : 76 Cause of : DVT Hx Family Cardiac Disorders: Yes (DVTs) Hx Family Cancer: Yes (Breast) Hx Family Endocrine Disorder: Yes (DM) Brother Race: Family Member Ethnicity: Non- Living Status: Age at : 63 Cause of : MN Hx Family Cardiac Disorders: Yes ([place], HD) Sister Race: Family Member Ethnicity: Non- Living Status: Still Living Hx Family Cardiac Disorders: Yes (HD/Stent placement) Hx Family Musculoskeletal Disorders: Yes (Arthritis) Medications and Allergies Allopurinol [Zyloprim] 200 mg PO DAILY 08/06/15 [History] Aspirin [Adult Low Dose Aspirin EC] 81 mg PO DAILY 08/06/15 [History] Atorvastatin [Lipitor] 40 mg PO HS 08/06/15 [History] Carvedilol 12.5 mg PO BID 08/06/15 [History] Clopidogrel [Plavix] 75 mg PO DAILY 08/06/15 [History] Cyanocobalamin (Vitamin B-12) [Vitamin B12] 1,000 mcg PO SOLORIO 08/06/15 [History] Furosemide [Lasix] 40 mg PO DAILY 08/06/15 [History] Insulin Glargine [Lantus] 5 unit SQ QAM 08/06/15 [History] Isosorbide MONOnitrate (24 HR) [Imdur] 120 mg PO DAILY 08/06/15 [History] Losartan [Cozaar] 25 mg PO DAILY 08/06/15 [History] Multivitamin [Multi-Day Vitamins] 1 tab PO DAILY 08/06/15 [History] Ranolazine [Ranexa] 500 mg PO BID 08/06/15 [History] Acetaminophen [Tylenol] 1,000 mg PO Q6HR PRN 02/25/16 [History] Albuterol Sulfate [Proair Hfa] 2 puff IH Q4H PRN 02/25/16 [History] Cholecalciferol (D-3) [Vitamin D] 1,000 unit PO DAILY 02/25/16 [History] Dextrin [Easy Fiber] 155 gm PO BID 02/25/16 [History] Ipratropium/Albuterol Neb [Duoneb] 3 ml IH Q6HR 02/25/16 [History] Cranberry Fruit Concentrate [Cranberry] 450 mg PO BID 03/07/17 [History] Fluticasone/Salmeterol [Advair 250-50 Diskus] 1 puff IH BID 03/07/17 [History] Insulin Glargine [Lantus] 70 unit SQ QPM 03/07/17 [History] Insulin Regular, Human [Novolin R] 2 - 12 unit SQ TIDWM PRN 03/07/17 [History] Lactobacillus Acidophilus [Acidophilus] 1 cap PO BID 03/07/17 [History] HYDROcodone/Acet 5/325 mg [[place] 5-325 mg] 1 tab PO Q6H PRN #10 tab 04/11/17 [Rx ] Allergies ramipril [From Altace] Allergy (Intermediate, Verified 04/17/17 16:22) Hives tetanus immune globulin Allergy (Intermediate, Verified 04/17/17 16:22) See Comments Swelling adhesive Allergy (Mild, Verified 04/17/17 16:22) See Comments redness All Systems Review: A 10-system review of systems was performed and is negative for pertinent findings except as documented above in the HPI. - Constitutional Constitutional: fatigue, weight gain, no anorexia - EENT Eyes: no blurred vision, no loss of vision, no pain - Cardiovascular Cardiovascular: as per HPI, leg edema, orthopnea, paroxysmal nocturnal dyspnea, no chest pain at rest, no chest pain with exertion, no diaphoresis, no palpitations, no syncope - Respiratory Respiratory: dyspnea, no cough, no hemoptysis, no wheezing - Gastrointestinal Gastrointestinal: abdominal pain, no hematemesis, no hematochezia, no nausea - Genitourinary Genitourinary: no dysuria, no hematuria - Musculoskeletal Musculoskeletal: no muscle cramps, no muscle weakness - Integumentary Integumentary: no erythema, no rash - Hematological/Lymphatic Hematologic/Lymphatic: easy bruising (bruises easily. States she is on plavix. ) , no easy bleeding Physical Examination Vital Signs, Last 4 Hours Temp Pulse Resp BP Pulse Ox 04/18/17 06:57 97.6 F 77 20 192/70 97 General: Conversant, No Apparent Distress HEENT: Atraumatic, Normocephaly, Mucus Membranes Moist Neck: No JVD, Normal carotid pulses, Other (obese) Cardiac: Reg Rate and Rhythm, Normal S1 and S2, Other (has a 2/6 systolic ejection murmur heard best at the left upper sternal border.) Lungs: Normal Breath Sounds, No Wheeze, Rales, Rhonchi Neuro: Alert and responsive, No focal deficits noted Abdomen: Soft, Non-Tender Skin: Other (erythema of the left lower extremity present ) Extremities: No Clubbing, No Cyanosis, Other (She has 1+ edema of the left leg and 2+ edema of the right leg. Both to the level of the chin. ) Results 04/19/17 03:30 04/19/17 03:30 Lab Results 04/17/17 04/17/17 04/18/17 21:15 21:15 04:15 WBC 6.0 Hgb 9.4 L Hct 28.9 L Plt Count 164 INR APTT D-Dimer 1006 H Sodium Potassium Chloride Carbon Dioxide BUN Creatinine Glucose Calcium Magnesium Troponin I 0.03 04/18/17 04/18/17 04:15 04:15 WBC Hgb Hct Plt Count INR 1.2 APTT 29.7 D-Dimer Sodium 140 Potassium 4.0 Chloride 98 Carbon Dioxide 36 H BUN 26 H Creatinine 1.61 H Glucose 228 H Calcium 9.6 Magnesium 1.4 L Troponin I Consult Discharge Plan - Plan Referrals: Richelle Correa DO [Primary Care Provider] -
[2017-04-18] MEDS: Budesonide/Formoterol 80/4.5 MDI IH SCH ×2 (10:43→20:40)
--- NOTE | 2017-04-18 16:55 | Internal Med Progress Note ---
Date of Encounter: 04/18/17 Time of Encounter: 10:00 - Assessment and plan (1) Acute exacerbation of CHF (congestive heart failure) Current Visit: Yes Status: Acute Assessment and plan: We will continue diuretics, strict I/O. Oxygen supportive treatment. Cardiology consult appreciated. Qualifiers: Congestive heart failure type: diastolic Qualified Code(s): I50.33 - Acute on chronic diastolic (congestive) heart failure (2) DVT prophylaxis Current Visit: Yes Status: Acute Assessment and plan: Heparin subcutaneously (3) HTN (hypertension) Current Visit: Yes Status: Chronic Assessment and plan: Continue home medications, follow-up BP. BP is stable now. Qualifiers: Hypertension type: essential hypertension Qualified Code(s): I10 - Essential (primary) hypertension (4) HLD (hyperlipidemia) Current Visit: Yes Status: Chronic Assessment and plan: Continue home medication ATORVASTATIN. Qualifiers: Hyperlipidemia type: pure hypercholesterolemia Qualified Code(s): E78.00 - Pure hypercholesterolemia, unspecified; E78.0 - Pure hypercholesterolemia (5) Diabetes Current Visit: Yes Status: Chronic Assessment and plan: Continue basal and sliding-scale insulin coverage. Closely follow up blood sugar level. Qualifiers: Diabetes mellitus type: type 2 Diabetes mellitus complication status: with kidney complications Diabetes mellitus complication detail: with nephropathy Diabetes mellitus retirement insulin use: with terminal carman use Qualified Code(s ): E11.21 - Type 2 diabetes mellitus with diabetic nephropathy; Z79.4 - halfway (current) use of insulin (6) CKD (chronic kidney disease) Current Visit: Yes Status: Chronic Assessment and plan: Creatinine is about at baseline. Avoid the nephrotoxic medications. Closely follow up renal function. Qualifiers: Chronic kidney disease stage: stage 3 (moderate) Qualified Code(s): N18.3 - Chronic kidney disease, stage 3 (moderate) (7) Cellulitis Current Visit: Yes Status: Acute Assessment and plan: We will continue vancomycin. Patient is at high risk because she is on vancomycin, need close monitoring. Qualifiers: Site of cellulitis: extremity Site of cellulitis of extremity: lower extremity Laterality: left Qualified Code(s): L03.116 - Cellulitis of left lower limb - Time Spent With Patient Greater than 35 minutes - Subjective Interval history: Patient is a 66-year-old female admitted for CHF exacerbation and cellulitis. Past medical history significant for hypertension, hyperlipidemia, CKD, and PAD. Patient was seen and examined. States his shortness of breath that has improved after diuretic use. Still in mild acute or respiratory distress. Denies chest pain. No cough. Vital signs stable. Cardiology consult appreciated, continued diuretics for CHF exacerbation. Continue vancomycin for cellulitis. - Constitutional Vitals: Temp Pulse Resp BP Pulse Ox 98.7 F 68 17 132/67 97 04/18/17 12:03 04/18/17 12:03 04/18/17 12:03 04/18/17 12:03 04/18/17 12:03 General appearance: Present: cooperative, mild distress, A&O X 3, morbidly obese , pleasant, answers questions appropriately - Head Head exam: Present: atraumatic, normocephalic - Eye Eye exam: Present: PERRL, conjuntiva pink, sclera anicteric Pupils: Present: PERRL - Neck Neck exam general surgery: Present: supple, trachea midline. Absent: lymphadenopathy - Respiratory Respiratory exam: Present: CTAB. Absent: accessory muscle use, rales, rhonchi, wheezes - Cardiovascular Cardiovascular exam: Present: RRR, +S1, +S2. Absent: diastolic murmur, gallop, rubs, systolic murmur - GI/Abdominal GI/Abdominal exam: Present: normal bowel sounds, soft, no peritoneal signs. Absent: distended, tenderness - Extremities Exam Extremities exam: Present: pedal edema (Bilaterally), warm, radial pulses palpable and symetrical. Absent: calf tenderness, cyanotic Additional comments: Patient has a 1x1 cm wound on left lower leg, no discharge, surrounding skin redness/warmth. - Neurological Exam Neurological exam: Present: CN II-XII intact, oriented X3, no focal deficits. Absent: pronater drift, facial droop, speech deficit - Skin Skin exam: Present: dry, intact Internal Medicine: Result - Labs CBC & Chem 7: 04/18/17 04:15 04/18/17 04:15 Labs: Short CBC 04/18/17 Range/Units 04:15 WBC 6.0 (4.3-11.1) K/mcL Hgb 9.4 L (11.5-15.4) g/dL Hct 28.9 L (35.3-44.9) % Plt Count 164 (140-400) K/mcL Neutrophils # 4.6 (1.6-8.9) K/mcL BMP 04/18/17 04:15 Sodium 140 Potassium 4.0 Chloride 98 Carbon Dioxide 36 H BUN 26 H Creatinine 1.61 H Glucose 228 H Calcium 9.6 Cardiac Enzymes 04/17/17 Range/Units 21:15 Troponin I 0.03 (0-0.03) ng/mL - ABG Interpretation ABG results: PT/INR, D-dimer PT 12.8 Seconds (9.4-12.1) H 04/18/17 04:15 D-Dimer 1006 ng/mLFEU (0-500) H 04/17/17 21:15 Consult Discharge Plan - Plan Referrals: Richelle Correa DO [Primary Care Provider] -
--- NOTE | 2017-04-18 17:51 | Electrocardiograph Report ---
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
[2017-04-18] MEDS: Furosemide 40 MG TABLET PO SCH (18:01)
[2017-04-18] MEDS ORDERED: Vancomycin 1,750 MG in D5% in Water 500 ML IVPB SCH (19:00)
[2017-04-18] MEDS ORDERED: Insulin DETEMIR 100 UNIT/ML X5UNITS SQ SCH (21:00)
[2017-04-19 03:50] LABS: Basophils % 0.4 %; Eosinophils # 0.2 K/mcL (0.0-0.6); Eosinophils % 2.7 %; Hematocrit 27.7 % (35.3-44.9); Immature Granulocytes % 0.5 % (0-4); Lymphocytes # 0.8 K/mcL (0.6-4.6); Mean Corpuscular HGB Conc 32.5 g/dL (31.6-35.5); Mean Corpuscular Hemoglobin 32.5 pg (28.0-33.3); Mean Platelet Volume 9.5 fL (9.4-12.4); Monocytes # 0.4 K/mcL (0.0-1.3); Monocytes % 6.7 %; Neutrophils # 4.1 K/mcL (1.6-8.9); Platelet Count 152 K/mcL (140-400); Red Blood Count 2.77 M/mcL (3.82-4.97); Red Cell Distribution Width 14.4 % (11.5-14.5); Segmented Neutrophils % 74.7 %
[2017-04-19 04:09] LABS: Calcium 9.1 mg/dL (8.6-10.8)
[2017-04-19 04:14] LABS: Potassium 4.4 mEq/L (3.5-4.5)
[2017-04-19] MEDS: Insulin LISPRO 300 UNITS/3 ML VIAL SQ SCH ×4 (07:40→21:17)
--- NOTE | 2017-04-19 08:21 | Venous Imaging Report ---
LE Venous Duplex Patient Name:Monica Smith Order Number:[id number] Procedure Date:04/18/2017 Date:1950ge:66 yrs Gender:Female Location:[facility] Room #: 3B49 [place] Worker Helper:Yolie Hicks RVT, RDCS Referring MD:Perez Rachel MD engineering administrator:Richelle Correa DO Reading MD:Tung Sheldon MD , FACS Study Quality:Technically Limited Primary Indications:Shortness of breath Secondary Indications: Edema Risk Factors Yes/No Anticoagulants Yes Previous Vascular Surgery Yes Impressions: Bilateral lower extremity: normal superficial and deep exam. Anatomic limitations of the study as all veins are not visualized. Recommendations: Suggest clinical correlation. Findings Venous Duplex Results: Right: Venous imaging of the lower extremity reveals full patency and normal vessel compressibility of the right distal iliac, right common femoral, right superficial femoral, right popliteal, right posterior tibial, right peroneal, right saphenofemoral junction and right lesser saphenous. Doppler signals in the evaluated veins were normal. The right superficial femoral vein was not well visualized. Left: Venous imaging of the lower extremity reveals full patency and normal vessel compressibility of the left popliteal, left posterior tibial, left peroneal, left great saphenous and left lesser saphenous. Doppler signals in the evaluated veins were normal. The left distal iliac, left common femoral and left superficial femoral veins were not well visualized. Prior Study: No prior study available for comparison. Lower Extremity Venous Duplex Side Vein Compress Spontaneous Flow Augment Diameter (cm) Depth (cm) Right Distal Iliac Normal Yes Phasic Yes Right Common Femoral Normal Yes Phasic Yes Right Superficial Femoral Normal Yes Phasic Yes Right Popliteal Normal Yes Phasic Yes Right Posterior Tibial Normal Yes Phasic Yes Right Peroneal Normal Yes Phasic Yes Right Saphenofemoral Junction Normal Yes Phasic Yes Right Lesser Saphenous Normal Yes Phasic Yes Left Distal Iliac Left Common Femoral Left Superficial Femoral Left Popliteal Normal Yes Phasic Yes Left Posterior Tibial Normal Yes Phasic Yes Left Peroneal Normal Yes Phasic Yes Left Great Saphenous Normal Yes Phasic Yes Left Lesser Saphenous Normal Yes Phasic Yes Updated by Tung Sheldon MD, FACS on 04/19/2017 8:13:58 AM Tung Sheldon MD electronically signed on 04/19/2017 8:14:23 AM with status of Final
[2017-04-19] MEDS: Budesonide/Formoterol 80/4.5 MDI IH SCH ×2 (08:26→20:06)
[2017-04-19] MEDS: Ranolazine 500 MG TAB.ER.12H PO SCH ×2 (09:04→21:04)
[2017-04-19] MEDS: Multivit/Ca/Min/Fe/FA 1 TAB TABLET PO SCH (09:04)
[2017-04-19] MEDS: Isosorbide MONOnitrate (24 HR) 60 MG TAB.ER.24H PO SCH (09:04)
[2017-04-19] MEDS: Cholecalciferol (D-3) 1,000 UNIT TABLET PO SCH (09:05)
[2017-04-19] MEDS: Lactobacillus 1 EACH CAP.SPRINK PO SCH ×2 (09:05→21:04)
[2017-04-19] MEDS: Furosemide 40 MG TABLET PO SCH ×2 (09:05→17:41)
[2017-04-19] MEDS: Aspirin Enteric Coated 81 MG Tablet PO SCH (09:05)
[2017-04-19] MEDS: *HR* Heparin 5,000 UNIT/ML VIAL SQ SCH ×2 (09:06→17:34)
[2017-04-19] MEDS: Insulin DETEMIR 100 UNIT/ML X5UNITS SQ SCH ×2 (09:06→21:31)
--- NOTE | 2017-04-19 12:19 | Cardiology Progress Note ---
Date of Encounter: 04/19/17 Time of Encounter: 10:25 Assessment and Plan (1) Congestive heart disease Current Visit: Yes Status: Acute Heart failure with preserved ejection fraction. Last EF was measured 03/16/17 with stress test was 60%. Patient now has weight gain, edema, orthopnea. Improving with diuresis. Net negative 2400 mL since admission. Recommend continued diuresis. Monitor and replace electrolytes as needed, Recommend fluid restriction diet with Na restriction. Strict I's and O's Blood pressure now at goal with last BP being 112/69. Recommend continued blood pressure control to prevent worsening of her diastolic heart failure. Qualifiers: Congestive heart failure type: diastolic Qualified Code(s): I50.31 - Acute diastolic (congestive) heart failure (2) Accelerated hypertension Current Visit: Yes Status: Acute May be the etiology of her exacerbation. improved and at goal with most recent BP reading. Continue to monitor. (3) Cellulitis Current Visit: Yes Status: Acute on vancomycin management per primary team. 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 (5) Diabetes Current Visit: Yes Status: Acute IDDM management per primary team. Qualifiers: Qualified Code(s): E11.9 - Type 2 diabetes mellitus without complications (6) Obesities, morbid Current Visit: Yes Status: Acute advise weight loss (7) Abdominal pain Current Visit: Yes Status: Acute appears to be improving. No abnormal findings on CT of the abdomen. Primary team is working up/ managing. Qualifiers: Abdominal location: left lower quadrant Qualified Code(s): R10.32 - Left lower quadrant pain (8) CKD (chronic kidney disease) Current Visit: Yes Status: Acute CKD3a Scr near baseline. and improving continue to monitor Qualifiers: Chronic kidney disease stage: stage 3 (moderate) Qualified Code(s): N18.3 - Chronic kidney disease, stage 3 (moderate) (9) CAD (coronary artery disease) Current Visit: Yes Status: Acute Most recent [facility] 03/16/16 revealed the following. Coronary Dominance: right Lesion Findings/Interventions * Left Main Coronary Artery There is a 40% stenosis in the LMCA. * Left Anterior Descending There is a 30% stenosis in the Proximal LAD. * Circumflex There is a 30% stenosis in the Mid Circumflex. * Ramus There is a 50% stenosis in the ostial Ramus. * Right Coronary Artery There is a 50% stenosis in the ostial RCA. There is a 30% stenosis in the Mid RCA. Additional Findings: Grafts * The left internal mammary graft to the LAD is atretic, nonfunctional. Currently on ASA, plavix, and Lipitor. Continue to manage diabetes and other modifiable risk factors. Qualifiers: Qualified Code(s): I25.10 - Atherosclerotic heart disease of hoh coronary artery without angina pectoris (10) History of coronary artery bypass graft Current Visit: Yes Status: Acute s/p CABG 2006. Discussion w patient/family: The assessment and plan as outlined above was discussed with the patient and/or family members who expressed understanding and agreement. All questions were answered. Thank you for involving us in the care of your patient. Please call with any questions. Subjective Principal diagnosis: Actue excaberation of eart failure with preserved ejection fraction. Interval history: No major events overnight. Patient dose complain of anxiety over her cellulitis and hearing that it was MRSA. Oher alvarado she has no further complaints this AM. Specifically she denies chest pain, increased dyspnea, cough wheeze. she states she is breathing easier and feels like there is less swelling in her lgs. She has no further concerns or complaints this AM. Objective Vital Signs, Last 4 Hours Temp Pulse Resp BP Pulse Ox 04/19/17 10:58 98.1 F 69 16 112/69 98 04/19/17 09:00 98 General: Conversant, No Apparent Distress HEENT: Atraumatic, Normocephaly, Mucus Membranes Moist Neck: No JVD, Normal carotid pulses Cardiac: Reg Rate and Rhythm, Normal S1 and S2, No Murmur Lungs: Normal Breath Sounds, No Wheeze, Rales, Rhonchi Neuro: Alert and responsive, No focal deficits noted Abdomen: Soft, Non-Tender, Other (obese) Skin: Other (She has erythema of the left lower extremity but this is less from yesterday. She has a small abrassion of the skin with serosanguiness drainage on both the anterior and posterior rueda on the left ) Musculoskeletal: No Chest Wall Tenderness Extremities: No Clubbing, No Cyanosis, Other (She has bilateral lower extremity edema to the level of the knee 1-2+ greater on the right than the left. ) Results 04/19/17 03:30 04/19/17 03:30 Lab Results 04/19/17 04/19/17 03:30 03:30 WBC 5.5 Hgb 9.0 L Hct 27.7 L Plt Count 152 Sodium 142 Potassium 4.4 Chloride 100 Carbon Dioxide 32 H BUN 29 H Creatinine 1.42 H Glucose 133 H Calcium 9.1 Consult Discharge Plan - Plan Referrals: Richelle Correa DO [Primary Care Provider] -
--- NOTE | 2017-04-19 15:04 | Internal Med Progress Note ---
Date of Encounter: 04/19/17 Time of Encounter: 13:50 - Assessment and plan (1) Acute exacerbation of CHF (congestive heart failure) Current Visit: Yes Status: Acute Assessment and plan: Patient reports increasing shortness of breath with ambulation, feeling of fullness, 15 pound weight gain in the last 2 weeks and dyspnea. . Last echocardiogram was February,, 60% EF. Continue Lasix, strict I&O, daily weights. Oxygen as needed to maintain sats greater than 92%. Cardiology on board. 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 Patient reports increased pain, swelling, redness. Culture was taken,, preliminary grew staph A, presumptively identified as MRSA. She is being treated with vancomycin. Continue until final. Qualifiers: Site of cellulitis: extremity Site of cellulitis of extremity: lower extremity Laterality: left Qualified Code(s): L03.116 - Cellulitis of left lower limb (3) Anemia Current Visit: Yes Status: Acute Assessment and plan: Unknown etiology. Labs in December, were WNL. Pt baseline is around 11. Today , Hgb is 9.0. Will draw labs and monitor for hematuria and will order stool occult blood. Continue to monitor and prepare to transfuse if symptomatic and <8. Qualifiers: Anemia type: unspecified type Qualified Code(s): D64.9 - Anemia, unspecified (4) HTN (hypertension) Current Visit: Yes Status: Chronic Assessment and plan: Continue home medications. BP is at goal. Continue to monitor vital signs. Qualifiers: Hypertension type: essential hypertension Qualified Code(s): I10 - Essential (primary) hypertension (5) HLD (hyperlipidemia) Current Visit: Yes Status: Chronic Assessment and plan: Continue home medication. chronic. Qualifiers: Hyperlipidemia type: pure hypercholesterolemia Qualified Code(s): E78.00 - Pure hypercholesterolemia, unspecified; E78.0 - Pure hypercholesterolemia (6) Diabetes Current Visit: Yes Status: Chronic Assessment and plan: chronic. Continue Accu-Cheks before meals at bedtime, sliding scale insulin, diabetic diet. A1c is 8.4. 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 Creatinine 1.42 an GFR 37. Monitor labs and vital signs Monitor hypertension Avoid nephrotoxins and NSAIDs. Qualifiers: Chronic kidney disease stage: stage 3 (moderate) Qualified Code(s): N18.3 - Chronic kidney disease, stage 3 (moderate) (8) PAD (peripheral artery disease) Current Visit: Yes Status: Chronic Assessment and plan: Chronic. (9) Obesities, morbid Current Visit: Yes Status: Chronic Assessment and plan: Chronic. Lifestyle changes. (10) DVT prophylaxis Current Visit: Yes Status: Acute Assessment and plan: Subcutaneous heparin - Time Spent With Patient less than 15 minutes - Subjective Interval history: Pt was seen and assessed at 1350. in room with pt. Pt states that she is still SOB and is having difficulty ambulating in the hallway without becoming SOB. She reports approximately 15lb weight gain in 2-3 weeks. - Constitutional Vitals: Temp Pulse Resp BP Pulse Ox 98.1 F 69 16 112/69 98 04/19/17 10:58 04/19/17 10:58 04/19/17 10:58 04/19/17 10:58 04/19/17 10:58 General appearance: Present: cooperative, mild distress, A&O X 3, morbidly obese , pleasant, no acute distress, answers questions appropriately - Head Head exam: Present: normal inspection - Eye Eye exam: Present: normal appearance, conjuntiva pink - ENT ENT exam: Present: normal exam, normal external ear exam - Neck Neck exam general surgery: Present: normal inspection. Absent: lymphadenopathy , tenderness - Respiratory Respiratory exam: Present: decreased breath sounds, CTAB. Absent: rales, respiratory distress, rhonchi, stridor, wheezes - Cardiovascular Cardiovascular exam: Present: RRR, +S1, +S2. Absent: diastolic murmur, systolic murmur - GI/Abdominal GI/Abdominal exam: Present: distended, normal bowel sounds, soft. Absent: tenderness - Extremities Exam Extremities exam: Present: pedal edema, tenderness, warm, radial pulses palpable and symetrical. Absent: calf tenderness, cyanotic, normal inspection - Neurological Exam Neurological exam: Present: alert, oriented X3, no focal deficits. Absent: facial droop, speech deficit - Skin Skin exam: Present: dry, warm. Absent: intact - Expanded Skin Exam Distribution of rash: Present: LLE Description of rash: Present: erythematous, swelling, tenderness Internal Medicine: Result - Labs CBC & Chem 7: 04/19/17 03:30 04/19/17 03:30 Labs: Short CBC 04/19/17 Range/Units 03:30 WBC 5.5 (4.3-11.1) K/mcL Hgb 9.0 L (11.5-15.4) g/dL Hct 27.7 L (35.3-44.9) % Plt Count 152 (140-400) K/mcL Neutrophils # 4.1 (1.6-8.9) K/mcL BMP 04/19/17 03:30 Sodium 142 Potassium 4.4 Chloride 100 Carbon Dioxide 32 H BUN 29 H Creatinine 1.42 H Glucose 133 H Calcium 9.1 - ABG Interpretation ABG results: PT/INR, D-dimer PT 12.8 Seconds (9.4-12.1) H 04/18/17 04:15 D-Dimer 1006 ng/mLFEU (0-500) H 04/17/17 21:15 Consult Discharge Plan - Plan Referrals: Richelle Correa DO [Primary Care Provider] -
--- NOTE | 2017-04-19 15:39 | Event Note ---
Date of Encounter: 04/19/17 Time of Encounter: 15:37 Patient with Diastolic CHF and accelerated hypertension. Patient is improving and is diuresing well. Continue diuresing and monitor/replace electrolytes as needed. Blood pressure now under better control. Cardiology will sign off at this time. Please call with further questions. thank you for the consultation.
[2017-04-19] MEDS ORDERED: Vancomycin 1,000 MG in D5% in Water 250 ML IVPB ONE (18:22)
[2017-04-20 00:31] LABS: Bilirubin,Urine Negative (Negative); Blood,Urine Negative (Negative); Clarity,Urine Clear (Clear); Color,Urine Yellow (Yellow); Glucose,Urine (UA) Normal (Normal); Ketones,Urine Negative (Negative); Leukocyte Esterase,Urine Trace (Negative); Nitrite,Urine Negative (Negative); PH,Urine 6.5 pH Units (5.0-8.0); Protein,Urine Negative (Neg-Trace); Specific Gravity,Urine 1.014 (1.010-1.025); Urobilinogen,Urine Normal (Normal)
[2017-04-20 00:33] LABS: Bacteria,Urine None Seen per hpf (None-Few); Hyaline Casts,Urine None Seen per lpf (None-Few); RBC,Urine 0-3 per hpf (0-3); Squamous Epithelial Cell,Urine Many per lpf (None-Few); WBC,Urine 0-3 per hpf (0-3)
[2017-04-20 06:17] LABS: Basophils % 0.5 %; Eosinophils # 0.2 K/mcL (0.0-0.6); Eosinophils % 2.9 %; Hematocrit 28.9 % (35.3-44.9); Hemoglobin 9.7 g/dL (11.5-15.4); Immature Granulocytes % 0.6 % (0-4); Lymphocytes # 0.9 K/mcL (0.6-4.6); Lymphocytes % 14.3 %; Mean Corpuscular HGB Conc 33.6 g/dL (31.6-35.5); Mean Corpuscular Hemoglobin 33.1 pg (28.0-33.3); Mean Corpuscular Volume 98.6 fL (83.0-100.0); Mean Platelet Volume 9.8 fL (9.4-12.4); Monocytes # 0.5 K/mcL (0.0-1.3); Monocytes % 7.4 %; Neutrophils # 4.6 K/mcL (1.6-8.9); Platelet Count 175 K/mcL (140-400); Red Blood Count 2.93 M/mcL (3.82-4.97); Red Cell Distribution Width 14.5 % (11.5-14.5); Segmented Neutrophils % 74.3 %
[2017-04-20 06:27] LABS: Potassium 3.8 mEq/L (3.5-4.5)
[2017-04-20] MEDS: Insulin LISPRO 300 UNITS/3 ML VIAL SQ SCH ×2 (07:53→12:01)
[2017-04-20] MEDS: Lactobacillus 1 EACH CAP.SPRINK PO SCH (09:15)
[2017-04-20] MEDS: Furosemide 40 MG TABLET PO SCH (09:15)
[2017-04-20] MEDS: Ranolazine 500 MG TAB.ER.12H PO SCH (09:15)
[2017-04-20] MEDS: Cholecalciferol (D-3) 1,000 UNIT TABLET PO SCH (09:16)
[2017-04-20] MEDS: Aspirin Enteric Coated 81 MG Tablet PO SCH (09:16)
[2017-04-20] MEDS: Multivit/Ca/Min/Fe/FA 1 TAB TABLET PO SCH (09:16)
[2017-04-20] MEDS: Isosorbide MONOnitrate (24 HR) 60 MG TAB.ER.24H PO SCH (09:16)
[2017-04-20] MEDS: Insulin DETEMIR 100 UNIT/ML X5UNITS SQ SCH (09:20)
[2017-04-20] MEDS: Budesonide/Formoterol 80/4.5 MDI IH SCH (10:53)
[2017-04-20 12:12] LABS: Folate 17.3 ng/mL (7.0-31.4)
--- NOTE | 2017-04-20 14:31 | Discharge Summary ---
Date of Encounter: 04/20/17 Time of Encounter: 13:50 - Discharge Diagnosis (1) Acute exacerbation of CHF (congestive heart failure) Priority: Primary Status: Acute Comments: Patient has a history of diastolic CHF, as well as accelerated hypertension. Patient will resume her home dose of Lasix. She is diuresing well. Balance between intake and output since beginning of visit is about 3 L. Does not appear that her weights are very accurate since it appears that she actually gained about 6 pounds. Patient states that she is feeling better, she appears to be breathing more easily. Qualifiers: Congestive heart failure type: diastolic Qualified Code(s): I50.33 - Acute on chronic diastolic (congestive) heart failure (2) Cellulitis Priority: Secondary Status: Acute Comments: She has been treated with vancomycin, pharmacy to dose due to renal disease, and her lower extremity cellulitis appears to have improved significantly. Patient states that she can bear weight, redness has decreased significantly. I did speak with ID nurse practitioner who recommended doxycycline 100 mg by mouth twice a day for home, this is better for her renal function. Qualifiers: Site of cellulitis: extremity Site of cellulitis of extremity: lower extremity Laterality: left Qualified Code(s): L03.116 - Cellulitis of left lower limb (3) Anemia Priority: Secondary Status: Chronic Comments: Hemoglobin actually has increased a little bit today 9.7. Iron studies, folate and, B12 are all within normal limits. Iron is only slightly decreased at 47, percent saturation only slightly decreased at 14. Neither of these values support iron supplementation. Anemia is most likely from chronic kidney disease. Patient appears to be chronically anemic, hemoglobin normally 10- 11. Urine is negative for blood, patient denies dark tarry stools or jourdan bleeding per rectum. Patient will need continued follow-up with primary care for potential treatment and continued evaluation. Qualifiers: Anemia type: unspecified type Qualified Code(s): D64.9 - Anemia, unspecified (4) HTN (hypertension) Priority: Secondary Status: Chronic Comments: Chronic. Well controlled in inpatient setting. Continue home medications. Qualifiers: Hypertension type: essential hypertension Qualified Code(s): I10 - Essential (primary) hypertension (5) HLD (hyperlipidemia) Priority: Secondary Status: Chronic Comments: Chronic. Continue home medications. Qualifiers: Hyperlipidemia type: pure hypercholesterolemia Qualified Code(s): E78.00 - Pure hypercholesterolemia, unspecified; E78.0 - Pure hypercholesterolemia (6) Diabetes Priority: Secondary Status: Chronic Comments: A1c is 8.4. Blood sugars have been elevated since arrival. Continue normal home medications, Accu-Cheks and diabetic diet upon discharge. Qualifiers: Diabetes mellitus type: type 2 Diabetes mellitus complication status: with kidney complications Diabetes mellitus complication detail: with nephropathy Diabetes mellitus manager long term care insulin use: with alf use Qualified Code(s ): E11.21 - Type 2 diabetes mellitus with diabetic nephropathy; Z79.4 - prison (current) use of insulin (7) CKD (chronic kidney disease) Priority: Secondary Status: Chronic Comments: Serum creatinine is 1.50, GFR 35. Both of these values are patient's baseline. Patient has been receiving vancomycin dosed by pharmacy. She will be discharged on doxycycline which is better for renal function. Continue to avoid nephrotoxins and NSAIDs. Qualifiers: Chronic kidney disease stage: stage 3 (moderate) Qualified Code(s): N18.3 - Chronic kidney disease, stage 3 (moderate) (8) PAD (peripheral artery disease) Priority: Secondary Status: Chronic (9) Obesities, morbid Priority: Secondary Status: Chronic Comments: Chronic. Lifestyle changes. (10) DVT prophylaxis Priority: Secondary Status: Acute Comments: Heparin subcutaneous. - Discharge Medications Prescriptions: Doxycycline 100 mg PO BID #14 capsule Home Medications: Allopurinol [Zyloprim] 200 mg PO DAILY 08/06/15 [History] Aspirin [Adult Low Dose Aspirin EC] 81 mg PO DAILY 08/06/15 [History] Atorvastatin [Lipitor] 40 mg PO HS 08/06/15 [History] Carvedilol 12.5 mg PO BID 08/06/15 [History] Clopidogrel [Plavix] 75 mg PO DAILY 08/06/15 [History] Cyanocobalamin (Vitamin B-12) [Vitamin B12] 1,000 mcg PO SOLORIO 08/06/15 [History] Furosemide [Lasix] 40 mg PO DAILY 08/06/15 [History] Insulin Glargine [Lantus] 5 unit SQ QAM 08/06/15 [History] Isosorbide MONOnitrate (24 HR) [Imdur] 120 mg PO DAILY 08/06/15 [History] Losartan [Cozaar] 25 mg PO DAILY 08/06/15 [History] Multivitamin [Multi-Day Vitamins] 1 tab PO DAILY 08/06/15 [History] Ranolazine [Ranexa] 500 mg PO BID 08/06/15 [History] Acetaminophen [Tylenol] 1,000 mg PO Q6HR PRN 02/25/16 [History] Albuterol Sulfate [Proair Hfa] 2 puff IH Q4H PRN 02/25/16 [History] Cholecalciferol (D-3) [Vitamin D] 1,000 unit PO DAILY 02/25/16 [History] Dextrin [Easy Fiber] 155 gm PO BID 02/25/16 [History] Ipratropium/Albuterol Neb [Duoneb] 3 ml IH Q6HR 02/25/16 [History] Cranberry Fruit Concentrate [Cranberry] 450 mg PO BID 03/07/17 [History] Fluticasone/Salmeterol [Advair 250-50 Diskus] 1 puff IH BID 03/07/17 [History] Insulin Glargine [Lantus] 70 unit SQ QPM 03/07/17 [History] Insulin Regular, Human [Novolin R] 2 - 12 unit SQ TIDWM PRN 03/07/17 [History] Lactobacillus Acidophilus [Acidophilus] 1 cap PO BID 03/07/17 [History] HYDROcodone/Acet 5/325 mg [Linden 5-325 mg] 1 tab PO Q6H PRN #10 tab 04/11/17 [Rx ] Doxycycline 100 mg PO BID #14 capsule 04/20/17 [Rx] Allergies/Adverse Reactions: Allergies ramipril [From Altace] Allergy (Intermediate, Verified 04/17/17 16:22) Hives tetanus immune globulin Allergy (Intermediate, Verified 04/17/17 16:22) See Comments Swelling adhesive Allergy (Mild, Verified 04/17/17 16:22) See Comments redness Procedures/tests Complete & Pending: Procedures Performed prior 72 hours Category Date Time Status EV venous imaging LE BI Routine Y 04/18/17 22:25 Completed Date of admission: 04/17/17 20:53 Primary care physician: Richelle Correa DO Consults: 04/17/17 20:56 Consult to Wound Care [CONS] Routine Reason for Consult: Patient has wound on LLE (rueda) as well as a diabetic ulcer on the LLE (back calf) Call Completed: No 04/17/17 20:57 Consult to Maintenance Painter [CONS] Routine Comment: Reason for Consult: Patient is diabetic with insulin dependency and requires education concerning neuropathy and wound care 04/17/17 22:24 Consult to Cardiology [CONS] Routine Comment: Consulting Provider: David Blanco Reason for Consult: patient known to Dr Chaudhry, acute on chronic SOB . CHF on CXR. Call Completed: No 04/18/17 09:25 Consult to Invasive Line Access Team [CONS] Routine Reason for Consult: limited IV access Line Type: EPIV Discharging clinician: Marzena Chavis Anticipated date of discharge: 04/20/17 - Patient Status Disposition: Home, Self-Care Condition: Good Overall status at discharge: patient is progressing back to baseline - Discharge Instructions Follow Up With: Richelle Correa DO [Primary Care Provider] - Additional Instructions: Please follow up with Dr. Correa within the next 7-10 days for a follow up visit. Start taking your antibiotic tonight. Keep your wound clean and dry. Wear your oxygen as directed. Resume your normal home medications. Return to the ER as needed for any other problems or concerns or if your symptoms return or worsen. - Diet and Activity Activity: increase activity as tolerated, wear oxygen at night Diet: advance to your usual diet Hospital course: Ms. Smith is a 66 year old female with past medical history of hyperlipidemia, hypertension, CK D stage III, hypertension, morbid obesity, diabetes, anemia, CABG, pacemaker. She presented to the emergency room on April 17 with shortness of breath and orthopnea, cellulitis and pain left lower extremity and abdominal pain and flank pain. Patient states that she fell at home about 4 weeks ago and these conditions and overall become worse since then. Patient wears oxygen at night at home, she states that she becomes more short of breath when she attempts to lie flat. She says that she has a hospital bed at home is allows her to sleep sitting up. Patient states that she injured her left lower extremity on a lawnmower 4 weeks ago when it appears to be healing well, however she does have cellulitis to her left lower extremity. Currently there is no drainage. On admission patient also reported right lower quadrant and right flank pain. She told me she thinks that she knocked something loose in her belly, however she states that the pain has resolved since she has been here and denies any abdominal pain at all. Patient had Doppler of bilateral lower extremities, there is normal superficial and deep vein exam. Has been seen by wound care, as well. They recommended continued wound care and dressing changes. Abdomen x-ray showed no acute osseous abnormality of the left tibia or fibula with diffuse soft tissue swelling and subcutaneous edema. He was treated with vancomycin IV pharmacy was dosing for renal disease. Preliminary culture shows presumptive MRSA, final culture and sensitivity have not returned. Her left lower extremity appears to be much better today. On admission patient was unable to bear weight , today she says that she is able to bear weight and redness is significantly less and then on arrival. I spoke with ID nurse practitioner who recommended doxycycline 100 mg by mouth twice a day for 7 days. Patient will follow up with primary care for continued evaluation. Patient was dilated by cardiology for congestive heart failure and hypertension. Last EF was in February, was 60% CHF improved with diuresis and patient has diuresed almost 3 L since admission. She will continue with her home dose of Lasix. It is recommended that she continue fluid restriction and sodium restriction and continue to monitor her weight at home. Her blood pressure is at goal, cardiology recommends continue blood pressure control to prevent worsening of heart failure. She will continue her home medications. Renal function remains at patient's baseline. Today creatinine is 1.50 and GFR 35. Again, this is close to her baseline. Doxycycline is a good choice for outpatient therapy with renal function. Patient's hemoglobin has been holding steady, actually improved today at 9.7. This is better than it has been since arrival. Iron is only slightly low at 47 , percent saturation is 14. B12 and folate are within normal limits. Urine was negative for blood. Patient denies jourdan blood loss per rectum and denies dark tarry stools. Patient should have follow-up with Dr. Ansari and to assess anemia. Patient will continue her normal anti-diabetes medications and attempt lifestyle changes for weight loss. Patient is stable and appropriate for discharge. - Time Spent with Patient Total time spent providing and/or coordinating discharge services: Less than 30 minutes - Constitutional Vitals: Temp Pulse Resp BP Pulse Ox 97.9 F 73 16 128/77 96 04/20/17 11:16 04/20/17 11:16 04/20/17 11:16 04/20/17 11:16 04/20/17 11:16 General appearance: Present: cooperative, mild distress, A&O X 3, morbidly obese , pleasant, no acute distress, answers questions appropriately - Head Head exam: Present: normal inspection - Eye Eye exam: Present: normal appearance, conjuntiva pink - ENT ENT exam: Present: mucous membranes moist, normal exam - Neck Neck exam general surgery: Absent: lymphadenopathy, tenderness - Respiratory Respiratory exam: Present: CTAB. Absent: rales, rhonchi, stridor, wheezes - Cardiovascular Cardiovascular exam: Present: RRR, +S1, +S2. Absent: diastolic murmur, systolic murmur - GI/Abdominal GI/Abdominal exam: Present: distended. Absent: hepatomegaly, tenderness - Extremities Exam Extremities exam: Present: normal capillary refill, normal inspection, radial pulses palpable and symetrical. Absent: tenderness, warm - Neurological Exam Neurological exam: Present: alert, oriented X3. Absent: facial droop, speech deficit - Skin Skin exam: Present: dry, intact, normal color, warm
[2017-04-20 15:33] VITALS: BP 121/61
[2017-04-20] MEDS ORDERED: Aminoglycoside Consult 1 EACH MC ONE (18:36)
== END 2017-04-20 18:37 | disposition home or self-care (01) | DRG 291 ==
LOC: 3BNU 16:16 → EMEROO 16:16 → 3BNU 21:20
PROVIDERS: ADMIT Internal Medicine Hematology & Oncology; ATTEND Nurse Practitioner Family